=== PATIENT | female | born 1980 | race Caucasian/White ===

== ENCOUNTER 2020-11-27 18:30 | Emergency (ER) | payer OTHER, SELFPAY ==
[2020-11-27 18:50] VITALS: BP 120/80; PULSE 90
[2020-11-27 19:04] VITALS: BP 134/73; PULSE 82; RESP 16; TEMP 36.6; BMI 62.4
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
== END 2020-11-27 19:35 | disposition home or self-care (01) ==
PROVIDERS: Emergency Provider Internal Medicine; PCP Internal Medicine
DX: F41.9 Anxiety disorder, unspecified (principal); Z79.899 Other long term (current) drug therapy
CPT/HCPCS: 99282; 99283

== ENCOUNTER 2022-10-09 16:53 | Emergency (ER) | payer OTHER, SELFPAY ==
[2022-10-09 16:59] VITALS: BP 146/94; PULSE 90; O2SAT 97
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
[2022-10-09 17:02] VITALS: BMI 21.2
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
== END 2022-10-09 17:05 | disposition left against medical advice (07) ==
PROVIDERS: Emergency Provider Internal Medicine
DX: T40.1X1A Poisoning by heroin, accidental (unintentional), initial encounter (principal); Y92.9 Unspecified place or not applicable; Z79.899 Other long term (current) drug therapy
CPT/HCPCS: 99283

== ENCOUNTER 2023-04-02 08:42 | Outpatient (AMB) | payer OTHER, SELFPAY ==
[2023-04-02 08:47] VITALS: BP 98/60; PULSE 72; O2SAT 96; BMI 23.8
--- NOTE | 2023-04-02 08:47 | MHC.PC.OV ---
Vital Signs 04/02/23 08:47 Height 5 ft 3 in Weight 134 lb 6 oz BMI 23.8 BP 98/60 Blood Pressure Location Rt brachial Position Sitting Pulse 72 Pulse Source Pulse Oximeter Pulse Oximetry (%) 96 Oxygen Delivery Method Room Air Intake Visit Reasons: 6 month follow up Allergies No Known Allergies Allergy (Verified 04/02/23 08:49) Tobacco use date assessed: 04/02/23 Dental Screening Dental Screen Date: 04/02/23 Did you have a dental visit in the last 12 months?: No Did you have a dental problem in the last 6 months where you did not have access to dental care?: No Was dental information given to patient?: No HPI 6 month follow up HPI Details Anxiety/depression: Pt is currently taking sertraline 100mg, clonidine 0.1mg, and clonazepam 0.5mg prn. Pt reports doing well overall. She is working on establishing with a therapist and psychiatrist. Denies any SI and HI. She reports that she is drinking less, couple times a week . Mammo was ordered, though pt has not had this. Will reorder and emphasized the importance of getting her labs drawn and mammo performed. [facility] Medical History Anxiety Depression History of hepatitis C Substance abuse Surgical History History of excision of pilonidal cyst Family History Father Diabetes Substance use disorder Mother Substance use disorder Brother No problems noted. Son No problems noted. Son No problems noted. Maternal Grandmother No problems noted. Maternal Grandfather Cancer of pancreas Paternal Grandmother No problems noted. Paternal Grandfather Stroke Substance use disorder Paternal Uncle Substance use disorder Family/Other Substance use disorder Social History Housing: Apartment Patient Tobacco Use Status: Current everyday Tobacco user Cigarettes Per Day: 10 e-Cigarette/Vaping Use: Never Used Second Hand Smoke Exposure: Yes service: No Cognitive needs: No Hearing needs: No Vision needs: No Questionnaire Thrive Questionnaire Date Thrive assessed: 05/29/22 MAGDALENA-7 AMB Questionnaire MAGDALENA-7 Date MAGDALENA - 7 assessed: 05/29/22 Source: Developed by Drs. Dontae Balderas, Omaira Griffiths, Paul Bullard and colleagues, with an educational leobardo from [employer]. Review of Systems Const Reports as per HPI Physical exam (Primary Care) Vital Signs: Last Vital Signs Pulse 72 04/02/23 08:47 BP 98/60 04/02/23 08:47 Pulse Ox 96 04/02/23 08:47 Oxygen Delivery Method Room Air 04/02/23 08:47 BMI result Body Mass Index 23.8 Tobacco/Smoking Status: Tobacco use Status Tobacco use date assessed 04/02/23 04/02/23 08:51 Patient Tobacco Use Status Current everyday Tobacco 04/02/23 08:49 e-Cigarette/Vaping Use Never Used 04/02/23 08:49 Thrive Assessment: Date of Thrive Assessment Date Thrive assessed 05/29/22 04/02/23 08:49 Const General: cooperative Orientation/consciousness: patient oriented x3 Resp Effort & Inspection: normal respiratory effort Auscultation: clear to auscultation bilaterally Cardio Rate: regular rate Rhythm: regular rhythm Heart sounds: S1 normal heart sound present and S2 normal heart sound present Neuro General: patient oriented x3 Psych Appearance: grossly normal Mental Status: mental status grossly normal Speech and movement: Normal speech and movement present Affect: normal affect Attitude: cooperative Thought process: Normal thought process present Thought content: Normal thought content present Insight: Good insight present (Psych) Judgement: Good judgement present (Psych) Assessment and Plan Assessment & Plan (1) Screening for breast cancer: Code(s): Z12.39 - Encounter for other screening for malignant neoplasm of breast Plan: Mammo reordered (2) Anxiety: Code(s): F41.9 - Anxiety disorder, unspecified Plan The patient agreed to the use of a medical anthropologist for this encounter. Scribed for ELEONORA Parker by Liz Durán medical anthropologist, on 04/02/2023 at 08:55 EST. Coding Level of Care Code Est Pt Level 3 (16324) Diagnoses Screening for breast cancer Z12.39 Anxiety F41.9
== END 2023-04-02 10:58 | disposition home or self-care (01) ==
PROVIDERS: Visit Provider Nurse Practitioner Family
DX: Z12.39 Encounter for other screening for malignant neoplasm of breast (principal); F41.9 Anxiety disorder, unspecified
CPT/HCPCS: 99213

== ENCOUNTER 2023-04-30 13:52 | Outpatient (REF) | payer OTHER, SELFPAY ==
[2023-04-30 16:24] LABS: Appearance Urine Cloudy; Color Urine Orange; Glucose Urine UA Negative (Negative); Leukocyte Esterase Urine Large (3+) (Negative); Nitrite Urine Positive (Negative); PH 5.5 (5.0-9.0); Specific Gravity - Urine 1.015 (1.005-1.025); UMIC TRIGGER UACC YES; Urine Blood Moderate (2+) (Negative); Urine Ketones Negative (Negative); Urine Protein 30 (1+) mg/dL (Neg-Trace)
[2023-04-30 16:42] LABS: Bacteria Urine None Seen (None Seen); Hyaline Casts Urine 0-2 /LPF (0-2); RBC Urine >20 /HPF (0-2); UACC Culture Trigger YES; WBC Urine 0-5 /HPF (0-5)
== END 2023-04-30 13:53 | disposition home or self-care (01) ==
LOC: HO.HMGCLDS 13:52
PROVIDERS: PCP Nurse Practitioner Family; Visit Provider Nurse Practitioner Family
DX: Z00.00 Encounter for general adult medical examination without abnormal findings (principal)
CPT/HCPCS: 81001; 87086; 87088; 87186

== ENCOUNTER 2024-04-08 15:04 | Outpatient (AMB) | payer OTHER, SELFPAY ==
--- NOTE | 2024-04-08 15:07 | A.OFFPC_ITS ---
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 Accompanied by: Self / Same As Patient Allergies No Known Allergies Allergy (Verified 04/08/24 15:33) Medication List - Last Reconciled 04/08/24 by GAVINO Man clonazepam 0.5 mg PO BID PRN 30 days clonidine HCl 0.1 mg PO DAILY 90 days methadone 11 mg PO DAILY naloxone 4 mg/actuation (Narcan) 4 mg intranasal Q2M PRN sertraline 100 mg PO DAILY Tobacco use date assessed: 04/08/24 Dental Screening Dental Screen Date: 04/08/24 Did you have a dental visit in the last 12 months?: Yes Did you have a dental problem in the last 6 months where you did not have access to dental care?: No Was dental information given to patient?: Patient has dentist HPI Annual PE HPI Details Pt is here for a PE. Will order labs. Pt does not have a machine setter automatic, will refer again. Due for mammo, will order. Anxiety/depression: Pt is seeing a therapist. Denies any SI and HI. Pt has been drinking alcohol heavily for several years. She now uses a breathalyzer three times a day (court ordered). [facility] Medical History Anxiety Depression History of hepatitis C Substance abuse Surgical History History of excision of pilonidal cyst Family History Father Diabetes Substance use disorder Mother Substance use disorder Brother No problems noted. Son No problems noted. Son No problems noted. Maternal Grandmother No problems noted. Maternal Grandfather Cancer of pancreas Paternal Grandmother No problems noted. Paternal Grandfather Stroke Substance use disorder Paternal Uncle Substance use disorder Family/Other Substance use disorder Social History Housing: Apartment Patient Tobacco Use Status: Current everyday Tobacco user Cigarettes Per Day: 10 e-Cigarette/Vaping Use: Never Used Second Hand Smoke Exposure: Yes service: No Cognitive needs: No Hearing needs: No Vision needs: No Questionnaire PHQ-9 Over the last 2 weeks, how often have you been bothered by any of the following problems? 1. Little interest or pleasure in doing things: several days 2. Feeling down, depressed, or hopeless: more than half the days 3. Trouble falling or staying asleep, or sleeping too much: several days 4. Feeling tired or having little energy: more than half the days 5. Poor appetite or overeating: several days 6. Feeling bad about yourself - or that you are a failure or have let yourself or your family down: several days 7. Trouble concentrating on things, such as reading the newspaper or watching television: more than half the days 8. Moving or speaking so slowly that other people could have noticed. Or the opposite - being so fidgety or restless that you have been moving around a lot more than usual: not at all 9. Thoughts that you would be better off or of hurting yourself in some way: not at all Total score: 10 Depression Screening Interpretation: Positive Depression Screening Done: Yes 47887 - PHQ-9 Billing: Yes Source: Developed by Drs. Dontae Balderas, Omaira Griffiths, Paul Bullard and colleagues, with an educational leobardo from [employer]. Thrive Questionnaire Date Thrive assessed: 04/08/24 I am a: Patient What is your living situation today?: I have a steady place to live Within the past 12 months, did the food you bought not last and you didn't have the money to get more?: Never true Within the past 12 months, did you worry whether your food would run out before you got money to buy more?: Never true Do you have trouble paying for medicines?: No Do you have trouble getting transportation to medical appointments?: No Do you have trouble paying your heating and electricity bill?: No Do you have trouble taking care of your child, family member or friend?: No Do you have trouble with day-to-day activities such as bathing, preparing meals, shopping, managing finances, etc.?: No Are you currently unemployed and looking for a job?: No Are you interested in more education?: No Please select the resources that you would like help with: None Currently or been in a relationship where the following occur: No concerns reported THRIVE Score: 0 AUDIT C Alcohol Use Questionnaire (AUDIT-C) 1. How often do you have a drink containing alcohol?: 4 or more times a week 2. How many drinks containing alcohol do you have on a typical day when you are drinking?: 10 or more 3. How often do you have six or more drinks on one occasion?: Daily or almost daily Total Score: 12 Score Reviewed/Action Taken: Yes MAGDALENA-7 AMB Questionnaire MAGDALENA-7 Date MAGDALENA - 7 assessed: 04/08/24 Feeling nervous, anxious, or on edge: 1 = Several days Not being able to stop or control worryin = Several days Worrying too much about different things: 1 = Several days Trouble relaxin = Several days Being so restless that it is hard to sit still: 1 = Several days Becoming easily annoyed or irritable: 2 = More than half the days Feeling afraid as if something awful might happen: 1 = Several days Total MAGDALENA-7 score (0-4 normal; 5-9 mild; 10-14 moderate; 15-21 severe): 8 Source: Developed by Drs. Dontae Balderas, Omaira Griffiths, Paul Bullard and colleagues, with an educational leobardo from [employer]. MAGDALENA-7 Assessment Billing MAGDALENA-7 Assessment Tool: MAGDALENA-7 Assessment 79115 Review of Systems Const Denies chills and Denies fever(s) Eyes Denies blurry vision ENT Denies vertigo, Denies dizziness and Denies sore throat Card Denies chest pain at rest, Denies chest pain with activity, Denies diaphoresis, Denies dyspnea and Denies dyspnea on exertion Resp Denies cough, Denies dyspnea, Denies dyspnea on exertion and Denies wheezing GI Denies abdominal pain, Denies melena, Denies hematochezia, Denies constipation, Denies diarrhea and Denies loose stools Denies hematuria Musc Denies numbness and Denies tingling Skin/Breast Denies lesions Neuro Denies vertigo, Denies dizziness, Denies numbness and Denies tingling Psych Denies homicidal ideation, Denies suicidal ideation and Denies other (substance abuse) Aller/Immun Denies wheezing Physical exam (Primary Care) Vital Signs: Last Vital Signs Pulse 76 04/08/24 15:08 BP 118/74 04/08/24 15:08 Pulse Ox 96 04/08/24 15:08 BMI result Body Mass Index 25.9 Tobacco/Smoking Status: Tobacco use Status Tobacco use date assessed 04/08/24 04/08/24 15:10 Patient Tobacco Use Status Current everyday Tobacco 04/08/24 15:10 e-Cigarette/Vaping Use Never Used 04/08/24 15:10 PHQ-9: PHQ-9 Score PHQ-9: Total score 10 04/08/24 15:25 Depression Screening Interpretation: Positive Thrive Assessment: Date of Thrive Assessment Date Thrive assessed 04/08/24 04/08/24 15:10 Currently or been in a relationship where the following occur: No concerns reported Const General: cooperative Nutritional Appearance: well nourished Orientation/consciousness: patient oriented x3 HENMT Head: Yes normal to inspection, Yes normocephalic and Yes atraumatic Ears: TM's normal bilaterally Eyes General: appearance normal, both eyes and all related structures Alignment and Position: alignment normal and position normal Neck Neck: Yes normal visual inspection, Yes no lymphadenopathy and Yes supple Resp Effort & Inspection: normal respiratory effort Auscultation: clear to auscultation bilaterally Cardio Rate: regular rate Rhythm: regular rhythm Heart sounds: S1 normal heart sound present, S2 normal heart sound present and no murmurs GI Palpation (GI): Soft to palpation and nontender Auscultation: normal bowel sounds Skin Rashes: no rashes Neuro General: patient oriented x3, moves all extremities, no focal motor deficits and deep tendon reflexes 2+ bilaterally Romberg Test: Negative Psych Appearance: grossly normal Mental Status: mental status grossly normal Speech and movement: Normal speech and movement present Affect: normal affect Attitude: cooperative Thought process: Normal thought process present Thought content: Normal thought content present Insight: Good insight present (Psych) Judgement: Good judgement present (Psych) Assessment and Plan Assessment & Plan (1) Screening for cervical cancer: Code(s): Z12.4 - Encounter for screening for malignant neoplasm of cervix Plan: Referred to machine setter automatic (2) Physical exam: Code(s): Z00.00 - Encounter for general adult medical examination without abnormal findings Plan: Labs ordered (3) Alcohol abuse: Code(s): F10.10 - Alcohol abuse, uncomplicated Plan: Pt is using a court ordered breathalyzer three times a day Plan The patient agreed to the use of a medical care administrator for this encounter. Scribed for RANDI Parker- by Liz Durán medical care administrator, on 04/08/2024 at 15:30 EST. Orders: Orders Comprehensive [place]. Panel Fast Today Z00.00 - Encounter for general adult medical examination without abnormal findings TSH reflex Free T4 Today Z00.00 - Encounter for general adult medical examination without abnormal findings Complete Blood Count Auto Diff Today Z00.00 - Encounter for general adult medical examination without abnormal findings UA CC w/rflx Micro + Cult Today Z00.00 - Encounter for general adult medical examination without abnormal findings Lipid Panel Today Z00.00 - Encounter for general adult medical examination without abnormal findings MM screening mammo BI Today Z12.31 - Encounter for screening mammogram for malignant neoplasm of breast Referrals MACHINE ADJUSTER LEADER CASE TRIM Referral Z12.4 - Encounter for screening for malignant neoplasm of cervix Coding Level of Care Code Est Pt Prev Care 40-64y(52790) Diagnoses Screening for cervical cancer Z12.4 Physical exam Z00.00 Alcohol abuse F10.10 Additional Codes MAGDALENA-7 Assessment Billing - MAGDALENA-7 Assessment Tool: MAGDALENA-7 Assessment 78245 ([id number])
[2024-04-08 15:08] VITALS: BP 118/74; PULSE 76; O2SAT 96; BMI 25.9
== END 2024-04-08 15:53 | disposition home or self-care (01) ==
PROVIDERS: PCP Nurse Practitioner Family; Visit Provider Nurse Practitioner Family
DX: Z00.00 Encounter for general adult medical examination without abnormal findings (principal); F10.10 Alcohol abuse, uncomplicated
CPT/HCPCS: 99396

== ENCOUNTER 2024-04-19 14:57 | Outpatient (REF) | payer OTHER, SELFPAY ==
--- NOTE | ~2024-04-19 | MM_ITS ---
EXAMINATION: MM SCREENING DIGITAL BREAST TOMOSYNTHESIS, BILATERAL CLINICAL INFORMATION: Screening. Asymptomatic. COMPARISON: Mammography: Baseline. TECHNIQUE: Digital breast mammography with tomosynthesis is performed in both the craniocaudal and mediolateral oblique views along with computer-aided detection (CAD). FINDINGS: The breasts are heterogeneously dense, which may obscure small masses (ACR BI-RADS breast composition Category c). Right: There are no significant masses, abnormal calcifications, or other abnormalities. Left: Focal asymmetries upper outer breast Middle and posterior depth. No suspicious calcifications or other abnormal findings. MM/MM tomosynthesis screening BI IMPRESSION: Additional imaging is recommended ASSESSMENT: BI-RADS BI-RADS 0 - Incomplete: Needs additional Imaging. RECOMMENDATION: 1. Additional views of the left breast 2. Targeted ultrasound if warranted after review of the additional views. 3. Radiology department staff will contact the patient for additional imaging. 1 year F/U This examination should not preclude the clinical evaluation of a suspicious palpable abnormality. This patient's information was entered into a reminder system with a target due date for their next mammogram. Electronically signed by: Cyndee Jose DO 04/30/2024 09:28 AM EDT
== END 2024-04-19 14:58 | disposition home or self-care (01) ==
LOC: HO.MAMMO 14:57
PROVIDERS: PCP Nurse Practitioner Family; Visit Provider Nurse Practitioner Family
DX: Z12.31 Encounter for screening mammogram for malignant neoplasm of breast (principal)
CPT/HCPCS: 77063; 77067

== ENCOUNTER → 2024-04-19 15:15 | Outpatient (BNV) | payer OTHER, SELFPAY | PROVIDERS: PCP Nurse Practitioner Family; Visit Provider Internal Medicine | DX: Z12.31 Encounter for screening mammogram for malignant neoplasm of breast (principal) | CPT/HCPCS: 77063; 77067 ==

== ENCOUNTER → 2025-01-20 07:02 | Outpatient (BNVA) | payer OTHER, SELFPAY | PROVIDERS: PCP Nurse Practitioner Family; Visit Provider Nurse Practitioner Family | DX: Z13.89 Encounter for screening for other disorder (principal) ==

== ENCOUNTER 2025-01-25 06:57 | Outpatient (AMB) | payer OTHER, SELFPAY ==
--- NOTE | 2025-01-25 07:28 | A.OFFPC_ITS ---
Intake Visit Reasons: Discuss anxiety meds [phone] (son's phone) Allergies No Known Allergies Allergy (Verified 01/25/25 07:40) Medication List - Last Reconciled 01/25/25 by RANDI Man- clonidine HCl 0.1 mg PO DAILY 90 days methadone 21 mg PO DAILY naloxone 4 mg/actuation (Narcan) 4 mg intranasal Q2M PRN sertraline 100 mg PO DAILY Tobacco use date assessed: 04/08/24 Dental Screening Dental Screen Date: 04/08/24 HPI Discuss anxiety meds [phone] (son's phone) HPI Details History of Present Illness The patient is a 44-year-old female presenting for a follow-up regarding anxiety management. She discontinued clonazepam in July after 17 years of PRN use. She reports doing fairly well but is experiencing stress due to her older son's legal issues. She denies any suicidal or homicidal ideation and is currently without a therapist or psychiatrist. She is interested in resuming therapy and psychiatric care. The patient is on methadone and has been for many years. Hydroxyzine has been prescribed for acute panic attacks, with instructions to use it PRN and separate it from methadone by 10 to 12 hours. She understands these instructions and notes that her anxiety attacks typically occur at night. Review of Systems - Psychiatric: Reports anxiety and panic attacks. Denies suicidal ideation or homicidal ideation. Plan The patient will be referred to behavioral health services to establish care with a therapist and psychiatrist. Hydroxyzine has been prescribed for PRN use during acute panic attacks, with clear instructions to avoid concurrent use with methadone by maintaining a 10 to 12-hour interval. Follow-up will be scheduled to monitor her progress and adjust treatment as necessary. Discussion Notes I discussed with the patient the importance of hydroxyzine and methadone intake by 10 to 12 hours to avoid interactions. We also talked about the need for behavioral health support, and I will facilitate her connection with a therapist and psychiatrist. I reassured her that follow-up will be arranged to ensure her treatment plan is effective. Patient Instructions - Take hydroxyzine only as needed for [place] attacks, and do not take it at the same time as methadone. Keep a 10 to 12-hour gap between doses. - Expect a call from behavioral health t o set up therapy and psychiatry appointments. - Follow up with the clinic as scheduled to review your progress. [facility] Medical History Anxiety Depression History of hepatitis C Substance abuse Surgical History History of excision of pilonidal cyst Family History Father Diabetes Substance use disorder Mother Substance use disorder Brother No problems noted. Son No problems noted. Son No problems noted. Maternal Grandmother No problems noted. Maternal Grandfather Cancer of pancreas Paternal Grandmother No problems noted. Paternal Grandfather Stroke Substance use disorder Paternal Uncle Substance use disorder Family/Other Substance use disorder Social History Housing: Apartment Patient Tobacco Use Status: Current everyday Tobacco user Cigarettes Per Day: 10 e-Cigarette/Vaping Use: Never Used Second Hand Smoke Exposure: Yes service: No Cognitive needs: No Hearing needs: No Vision needs: No Questionnaire Thrive Questionnaire Date Thrive assessed: 04/08/24 I am a: Patient What is your living situation today?: I have a steady place to live Within the past 12 months, did the food you bought not last and you didn't have the money to get more?: Never true Within the past 12 months, did you worry whether your food would run out before you got money to buy more?: Never true Do you have trouble paying for medicines?: No Do you have trouble getting transportation to medical appointments?: No Do you have trouble paying your heating and electricity bill?: No Do you have trouble taking care of your child, family member or friend?: No Do you have trouble with day-to-day activities such as bathing, preparing meals, shopping, managing finances, etc.?: No Are you currently unemployed and looking for a job?: No Are you interested in more education?: No Please select the resources that you would like help with: None Currently or been in a relationship where the following occur: No concerns reported THRIVE Score: 0 MAGDALENA-7 AMB Questionnaire MAGDALENA-7 Date MAGDALENA - 7 assessed: 04/08/24 Source: Developed by Drs. Dontae L. AndreyOmaira wilson Kurt Kroenke and colleagues, with an educational leobardo from [employer]. Physical exam (Primary Care) Tobacco/Smoking Status: Tobacco use Status Tobacco use date assessed 04/08/24 04/08/24 15:10 Patient Tobacco Use Status Current everyday Tobacco 04/08/24 15:10 e-Cigarette/Vaping Use Never Used 04/08/24 15:10 Thrive Assessment: Date of Thrive Assessment Date Thrive assessed 04/08/24 04/08/24 15:10 Currently or been in a relationship where the following occur: No concerns reported Telehealth Telehealth Telehealth Platform: [employer] Location of provider rendering services: practice address Location of patient: address on file Patient Identification confirmed using: Name, : Yes Telehealth method: video Patient verbally consented to treatment: Yes Patient verbally consented to billing insurance company: Yes Patient informed of any privacy concerns related to visit: Yes Minutes spent on Phone/Video with Pt.: 15 Coding Level of Care Code Tele Est Pt Level 3 (59491) Diagnoses Anxiety F41.9 Panic attacks F41.0 Assessment & Plan Assessment & Plan (1) Anxiety: Code(s): F41.9 - Anxiety disorder, unspecified Category: Medical (2) Panic attacks: Code(s): F41.0 - Panic disorder [episodic paroxysmal anxiety] Category: Medical Plan . Medications: New hydroxyzine HCl please try to separate from use of methadone by 10-12 hrs if possible 50 mg PO BID 30 days PRN 60 tabs 0RF panic attacks hydroxyzine HCl please try to separate from use of methadone by 10-12 hrs if possible 50 mg PO DAILY PRN 30 tabs 0RF panic attacks 30 days Discontinued clonazepam Discontinued Reason: Patient no longer taking 0.5 mg PO BID 30 days PRN 60 tabs 1RF anxiety
== END 2025-01-25 07:47 | disposition home or self-care (01) ==
LOC: HO.HMCC 06:58
PROVIDERS: PCP Nurse Practitioner Family; Visit Provider Nurse Practitioner Family
DX: F41.9 Anxiety disorder, unspecified (principal); F41.0 Panic disorder [episodic paroxysmal anxiety]